=== PATIENT | male | born 1935 | race Caucasian/White ===

== ENCOUNTER 2020-06-13 10:48 | Inpatient (IN) | payer MEDICARE ==
[~2020-06-13] VITALS: Ht 180 cm; Wt 85.5 kg
[2020-06-13 11:59] LABS: HEMOGLOBIN 12.9 gm/dl (14.0-17.5); RED BLOOD COUNT 4.11 M/UL (4.20-5.50); WHITE BLOOD COUNT 8.2 K/UL (4.5-11.0)
[2020-06-13 12:31] LABS: BUN/CREATININE RATIO 8 (0-10)
[2020-06-13] MEDS ORDERED: ECOTRIN81 MG PO (19:31)
[2020-06-13] MEDS ORDERED: ATORVASTATIN CA80 MG PO (19:32)
[2020-06-13] MEDS ORDERED: CLOPIDOGREL75 MG PO (19:32)
[2020-06-13] MEDS ORDERED: PROSCAR 5 MG TAB5 MG PO (19:33)
[2020-06-13] MEDS ORDERED: VITAMIN B-121000 MC3 PO (19:33)
[2020-06-13] MEDS ORDERED: FUROSEMIDE20 MG PO (19:34)
[2020-06-13] MEDS ORDERED: HYDROCODONE-AC1 EACH PO (19:34)
[2020-06-13] MEDS ORDERED: ISOSORBIDE MONO30 MG PO (19:35)
[2020-06-13] MEDS ORDERED: LANTUS100 UNIT/1 SQ (19:35)
[2020-06-13] MEDS ORDERED: MIRTAZAPINE30 MG PO (19:36)
[2020-06-13] MEDS ORDERED: LISINOPRIL20 MG PO (19:36)
[2020-06-13] MEDS ORDERED: PROTONIX 40 MG40 M1 PO (19:37)
[2020-06-13] MEDS ORDERED: TAMSULOSIN HCL0.4 MG PO (19:37)
[2020-06-13] MEDS ORDERED: VITAMIN C250 MG PO (19:38)
[2020-06-13] MEDS ORDERED: AMLODIPINE BESY10 MG PO (19:38)
[2020-06-13] MEDS ORDERED: FERROUS SULFAT325 MG PO (19:38)
[2020-06-13] MEDS ORDERED: CARVEDILOL12.5 MG PO (19:39)
[2020-06-13] MEDS ORDERED: REFRESH PLUS1 EACH OU (19:41)
[2020-06-13] MEDS ORDERED: NALOXONE (19:48)
[2020-06-14 02:58] LABS: HEMOGLOBIN 13.9 gm/dl (14.0-17.5); RED BLOOD COUNT 4.41 M/UL (4.20-5.50); WHITE BLOOD COUNT 10.1 K/UL (4.5-11.0)
[2020-06-14 03:34] LABS: BUN/CREATININE RATIO 10 (0-10)
[2020-06-14 12:52] LABS: ACINETOBACTER BAUMANNII Not Detected (Negative); CANDIDA ALBICANS Not Detected (Negative); CANDIDA KRUSEI Not Detected (Negative); CANDIDA TROPICALIS Not Detected (Negative); ENTEROCOCCUS Not Detected (Negative); ESCHERICHIA COLI Not Detected (Negative); HAEMOPHILUS INFLUENZAE Not Detected (Negative); KLEBSIELLA OXYTOCA Not Detected (Negative); KLEBSIELLA PNEUMONIAE Not Detected (Negative); KPC-CARBAPENEM-RESISTANCE GENE Not Detected (Negative); PROTEUS Not Detected (Negative); PSEUDOMONAS AERUGINOSA Not Detected (Negative); SERRATIA MARCESANS Not Detected (Negative); STAPHYLOCOCCUS AUREUS Not Detected (Negative); STREP AGALACTIAE (GROUP B) Not Detected (Negative); STREP PYOGENES (GROUP A) Not Detected (Negative); STREPTOCOCCUS Not Detected (Negative); vanA/B (VANCOMYCIN RESIST GENE Not Detected (Negative)
[2020-06-14 14:10] LABS: STAPHYLOCOCCUS DETECTED (Negative); mecA (METHICILLIN RESIST GENE DETECTED (Negative)
[2020-06-15 02:59] LABS: HEMOGLOBIN 14.1 gm/dl (14.0-17.5); RED BLOOD COUNT 4.49 M/UL (4.20-5.50); WHITE BLOOD COUNT 11.9 K/UL (4.5-11.0)
[2020-06-16 03:38] LABS: HEMOGLOBIN 14.1 gm/dl (14.0-17.5); RED BLOOD COUNT 4.54 M/UL (4.20-5.50); WHITE BLOOD COUNT 11.7 K/UL (4.5-11.0)
[2020-06-17 05:22] LABS: HEMOGLOBIN 13.9 gm/dl (14.0-17.5); RED BLOOD COUNT 4.45 M/UL (4.20-5.50)
[2020-06-18 04:47] LABS: HEMOGLOBIN 13.9 gm/dl (14.0-17.5); RED BLOOD COUNT 4.43 M/UL (4.20-5.50); WHITE BLOOD COUNT 14.4 K/UL (4.5-11.0)
[2020-06-18] MEDS ORDERED: ISOSORBIDE MONO30 MG PO (10:37)
[2020-06-18] MEDS ORDERED: ELIQUIS 2.5 MG2.5 MG PO (10:37)
[2020-06-18] MEDS ORDERED: LEVOFLOXACIN500 MG PO (10:39)
[2020-06-18] MEDS ORDERED: FLAGYL500 MG PO (10:39)
--- NOTE | 2020-06-18 11:03 | NUR ---
PATIENT ROOM AIR SATS ARE FROM 88% TO 90%
[2020-07-14] MEDS ORDERED: LASIX40 MG PO (12:41)
[2020-07-14] MEDS ORDERED: DOXYCYCLINE HY100 MG PO (12:41)
[2020-09-04] MEDS ORDERED: ERYTHROMYCIN OP1 GM OS (15:40)
== END 2020-06-18 15:56 | disposition home or self-care (01) | DRG 417 ==
LOC: ER1 10:48 → CDU 16:14 → PROG CARE 16:14
PROVIDERS: Family Medicine; Physician Assistant Medical; Surgery; ADMIT Internal Medicine
PROC: 0FT44ZZ Resection of Gallbladder, Percutaneous Endoscopic Approach (ICD-10-PCS; principal; 2020-06-17 09:00)
DX: K81.0 Acute cholecystitis (principal); I50.43 Acute on chronic combined systolic (congestive) and diastolic (congestive) heart failure; J96.01 Acute respiratory failure with hypoxia; N17.9 Acute kidney failure, unspecified; I13.0 Hypertensive heart and chronic kidney disease with heart failure and stage 1 through stage 4 chronic kidney disease, or unspecified chronic kidney disease; I44.7 Left bundle-branch block, unspecified; I25.10 Atherosclerotic heart disease of native coronary artery without angina pectoris; E78.5 Hyperlipidemia, unspecified; N18.9 Chronic kidney disease, unspecified; Z20.822 Contact with and (suspected) exposure to COVID-19; E66.9 Obesity, unspecified; I48.0 Paroxysmal atrial fibrillation; E11.22 Type 2 diabetes mellitus with diabetic chronic kidney disease; Z79.82 Long term (current) use of aspirin; Z79.899 Other long term (current) drug therapy; Z88.0 Allergy status to penicillin; Z87.891 Personal history of nicotine dependence; Z95.1 Presence of aortocoronary bypass graft; Z86.73 Personal history of transient ischemic attack (TIA), and cerebral infarction without residual deficits; Z95.5 Presence of coronary angioplasty implant and graft; Z98.49 Cataract extraction status, unspecified eye; Z83.3 Family history of diabetes mellitus; Z82.49 Family history of ischemic heart disease and other diseases of the circulatory system; Z68.27 Body mass index [BMI] 27.0-27.9, adult
CPT/HCPCS: ECHO; 36415; 36600; 71045; 78452; 80048; 80053; 80076; 80202; 82150; 82550; 82553; 82803; 82962; 83690; 83735; 83874; 84439; 84443; 84484; 85025; 85027; 85610; 87040; 87077; 87150; 87186; 93005; 93017; 93306; 94760; 96374; 97161; 99285; A9502; J1100; J1940; J2001; J2185; J2405; J2550; J2704; J2710; J2785; J3010; J3370; J7030; J7070; J7120; Q9967; U0002

== ENCOUNTER 2020-07-12 08:29 | Inpatient (IN) | payer OTHER, MEDICARE ==
[~2020-07-12] VITALS: Ht 180.3 cm; Wt 84.4 kg
[~2020-07-12 08:29] MED LIST: AMLODIPINE BESY10 MG PO; ATORVASTATIN CA80 MG PO; CARVEDILOL12.5 MG PO; CLOPIDOGREL75 MG PO; ECOTRIN81 MG PO; ELIQUIS 2.5 MG2.5 MG PO; FERROUS SULFAT325 MG PO; FLAGYL500 MG PO; FUROSEMIDE20 MG PO; HYDROCODONE-AC1 EACH PO; ISOSORBIDE MONO30 MG PO; LANTUS100 UNIT/1 SQ; LEVOFLOXACIN500 MG PO; LISINOPRIL20 MG PO; MIRTAZAPINE30 MG PO; NALOXONE; PROSCAR 5 MG TAB5 MG PO; PROTONIX 40 MG40 M1 PO; REFRESH PLUS1 EACH OU; TAMSULOSIN HCL0.4 MG PO; VITAMIN B-121000 MC3 PO; VITAMIN C250 MG PO
[2020-07-12 10:07] LABS: HEMOGLOBIN 13.1 gm/dl (14.0-17.5); RED BLOOD COUNT 4.11 M/UL (4.20-5.50); WHITE BLOOD COUNT 9.4 K/UL (4.5-11.0)
[2020-07-12 10:35] LABS: BUN/CREATININE RATIO 11 (0-10)
[2020-07-13 06:40] LABS: HEMOGLOBIN 12.6 gm/dl (14.0-17.5); RED BLOOD COUNT 4.02 M/UL (4.20-5.50); WHITE BLOOD COUNT 8.2 K/UL (4.5-11.0)
[2020-07-14 04:15] LABS: HEMOGLOBIN 13.7 gm/dl (14.0-17.5); RED BLOOD COUNT 4.32 M/UL (4.20-5.50); WHITE BLOOD COUNT 7.9 K/UL (4.5-11.0)
[2020-07-14] MEDS ORDERED: DOXYCYCLINE HY100 MG PO (12:41)
[2020-07-14] MEDS ORDERED: LASIX40 MG PO (12:41)
[2020-09-04] MEDS ORDERED: ERYTHROMYCIN OP1 GM OS (15:40)
== END 2020-07-14 15:43 | disposition home or self-care (01) | DRG 291 ==
LOC: ER1 08:29 → CDU 10:55 → MED SURG 4 16:18
PROVIDERS: Family Medicine; Physician Assistant; ADMIT Internal Medicine
DX: I13.0 Hypertensive heart and chronic kidney disease with heart failure and stage 1 through stage 4 chronic kidney disease, or unspecified chronic kidney disease (principal); I50.23 Acute on chronic systolic (congestive) heart failure; J18.9 Pneumonia, unspecified organism; J96.21 Acute and chronic respiratory failure with hypoxia; I48.20 Chronic atrial fibrillation, unspecified; E11.22 Type 2 diabetes mellitus with diabetic chronic kidney disease; N40.0 Benign prostatic hyperplasia without lower urinary tract symptoms; E78.5 Hyperlipidemia, unspecified; I44.7 Left bundle-branch block, unspecified; K21.9 Gastro-esophageal reflux disease without esophagitis; I25.10 Atherosclerotic heart disease of native coronary artery without angina pectoris; N18.30 Chronic kidney disease, stage 3 unspecified; E66.9 Obesity, unspecified; D69.6 Thrombocytopenia, unspecified; Z79.01 Long term (current) use of anticoagulants; Z99.81 Dependence on supplemental oxygen; Z90.49 Acquired absence of other specified parts of digestive tract; Z95.1 Presence of aortocoronary bypass graft; Z95.2 Presence of prosthetic heart valve; Z79.82 Long term (current) use of aspirin; Z79.4 Long term (current) use of insulin; Z86.73 Personal history of transient ischemic attack (TIA), and cerebral infarction without residual deficits; Z85.820 Personal history of malignant melanoma of skin; Z98.42 Cataract extraction status, left eye; Z98.41 Cataract extraction status, right eye; Z87.891 Personal history of nicotine dependence; Z82.49 Family history of ischemic heart disease and other diseases of the circulatory system; Z68.26 Body mass index [BMI] 26.0-26.9, adult
CPT/HCPCS: 36415; 36600; 71045; 71046; 80048; 80053; 82550; 82553; 82803; 82962; 83605; 83874; 83880; 84484; 85025; 86140; 87040; 93005; 97161; 97166; 99285; J1940; J7070; U0002

== ENCOUNTER → 2020-08-23 | Outpatient (CLI) | payer MEDICARE, OTHER ==
[~2020-08-23] MED LIST changes: +DOXYCYCLINE HY100 MG PO; +ERYTHROMYCIN OP1 GM OS; +LASIX40 MG PO
== END ==
LOC: EXRD 11:00
DX: N28.1 Cyst of kidney, acquired (principal)
CPT/HCPCS: 76775